=== PATIENT | female | born 1990 | race Hispanic/Latino ===

== ENCOUNTER → 2021-05-27 08:10 | Outpatient (CLI) | payer OTHER, SELFPAY ==
--- NOTE | 2021-05-27 | DI.MRI.S_ITS ---
PROCEDURE: MR TMJ WO CON INDICATIONS: Jaw pain TECHNIQUE: Axial T1 spin echo, coronal and sagittal PD fast spin echo through the temporomandibular joints, in both the closed- and open-mouth positions. COMPARISON: None. FINDINGS: Image quality: Excellent. Right: Joint is normally aligned on closed and open-mouth positioning. Articular disk demonstrates normal location and morphology. No bony erosions or osteophytes. Left: Joint is normally aligned on closed and open-mouth positioning. Articular disk demonstrates normal location and morphology. No bony erosions or osteophytes. IMPRESSION: No significant abnormality can be seen. Dictated by: Remi Ramon M.D. on 05/27/2021 at 9:02 Approved by: Remi Ramon M.D. on 05/27/2021 at 9:04
== END ==
PROVIDERS: PCP Physician Assistant; Referring Provider Dentist Oral and Maxillofacial Surgery; Visit Provider Dentist Oral and Maxillofacial Surgery
DX: R68.84 Jaw pain (principal)
CPT/HCPCS: 70336

== ENCOUNTER 2021-10-29 09:20 | Outpatient (CLI) | payer OTHER, SELFPAY | END 2021-11-02 13:24 | disposition home or self-care (01) | LOC: PHYS 09:21 | PROVIDERS: Family Provider Physician Assistant; PCP Physician Assistant; Referring Provider Physician Assistant; Visit Provider Physician Assistant | DX: M25.532 Pain in left wrist (principal) | CPT/HCPCS: 95886; 95912 ==

== ENCOUNTER → 2021-12-01 10:19 | Outpatient (CLI) | payer OTHER, SELFPAY ==
--- NOTE | 2021-12-01 | DI.MRI.S_ITS ---
PROCEDURE: MR WRIST RT W CON INDICATIONS: PAIN IN RIGHT WRIST TECHNIQUE: After the administration of 3-4 mL of dilute intra-articular Gadolinium contrast into the radiocarpal compartment, coronal T1 spin echo with fat saturation and T2 fast spin echo with fat saturation, axial T1 spin echo and T2 fast spin echo with fat saturation, sagittal T1 spin echo with and without fat saturation through the wrist. COMPARISON: [facility], , [place] WRIST INJECTION MR/CT RT, 12/01/2021, 10:35. FINDINGS: Image quality: Excellent. Bones and cartilage: The carpal bones are normally aligned. No bone marrow contusions or fractures. No evidence for avascular necrosis. Overlying cartilage surfaces appear normal. Carpal ligaments: The scapholunate and lunotriquetral ligaments appear intact, without gadolinium extravasation into the mid-carpal compartment. On sagittal images, the pisohamate ligament appears intact. Triangular fibrocartilage complex: The triangular fibrocartilage disc, with its styloid and foveal lamina, appears intact. No gadolinium extravasation into the distal radioulnar joint. Tendons and soft tissues: The carpal tunnel structures appear normal, including the median nerve. The ulnar nerve appears normal within Guyon's canal. T1-hyperintense fluid within the second and 3rd extensor compartments is most likely due to extravasation during the arthrogram injection. The remaining extensor tendon compartments demonstrate normal morphology, without pathologic tendon sheath fluid. A lobular communicating ganglion cyst at the volar radial aspect of the wrist measures up to 1.4 x 1.1 x 1.3 cm. The cyst is located just deep to the radial artery. IMPRESSION: 1. Lobular communicating ganglion cyst at the volar radial aspect of the wrist measures up to 1.4 cm maximum dimension, located just deep to the radial artery. 2. No acute trabecular bone injury. No significant ligament or tendon injury is seen. Dictated by: Eliot Lopez M.D. on 12/01/2021 at 16:06 Approved by: Eliot Lopez M.D. on 12/01/2021 at 16:11
--- NOTE | 2021-12-01 | DI.RAD.S_ITS ---
PROCEDURE: [place] WRIST INJECTION MR/CT RT INDICATIONS: PAIN IN RIGHT WRIST COMPARISON: [facility], MR, MR WRIST RT W CON, 12/01/2021, 10:50. TECHNIQUE: After informed consent had been obtained, the wrist was examined fluoroscopically, and a site chosen for injection of the radiocarpal compartment from a dorsal approach. Skin was prepped and draped in a sterile fashion and 1% lidocaine infiltrated from the skin down to the articular surface. A hypodermic needle was then introduced into the articular space and a modest amount of contrast medium was instilled confirming intra-articular needle tip placement. This was followed by approximately 4 mL of a dilute gadolinium solution. Needle was removed and dressing was applied. The patient experienced no complications throughout the procedure and left the fluoroscopic suite in no apparent distress. FINDINGS: A single fluoroscopic spot image demonstrates intra-articular location to injected iodinated contrast. IMPRESSION: Successful fluoroscopic-guided administration of dilute Gadolinium solution for wrist MR arthrogram. Dictated by: Millie San M.D. on 12/01/2021 at 12:53 Approved by: Millie San M.D. on 12/01/2021 at 12:54
== END ==
PROVIDERS: Family Provider Physician Assistant; PCP Physician Assistant; Referring Provider Physician Assistant; Visit Provider Physician Assistant
DX: M25.531 Pain in right wrist (principal); M67.431 Ganglion, right wrist
CPT/HCPCS: 20605; 73222; 77002

== ENCOUNTER → 2021-12-02 08:09 | Outpatient (CLI) | payer OTHER, SELFPAY ==
--- NOTE | 2021-12-02 | DI.RAD.S_ITS ---
PROCEDURE: [place] WRIST INJECTION MR/CT LT INDICATIONS: PAIN IN LEFT WRIST COMPARISON: None. TECHNIQUE: After informed consent had been obtained, the wrist was examined fluoroscopically, and a site chosen for injection of the radiocarpal compartment from a dorsal approach. Skin was prepped and draped in a sterile fashion and 1% lidocaine infiltrated from the skin down to the articular surface. A hypodermic needle was then introduced into the articular space and a modest amount of contrast medium was instilled confirming intra-articular needle tip placement. This was followed by approximately 4 mL of a dilute gadolinium solution. Needle was removed and dressing was applied. The patient experienced no complications throughout the procedure and left the fluoroscopic suite in no apparent distress. FINDINGS: A single fluoroscopic spot image demonstrates intra-articular location to injected iodinated contrast. IMPRESSION: Successful fluoroscopic-guided administration of dilute Gadolinium solution for wrist MR arthrogram. Dictated by: Abel Corrales M.D. on 12/02/2021 at 15:13 Approved by: Abel Corrales M.D. on 12/02/2021 at 15:14
--- NOTE | 2021-12-02 | DI.MRI.S_ITS ---
PROCEDURE: MR WRIST LT W CON INDICATIONS: PAIN IN LEFT WRIST TECHNIQUE: After the administration of 3-4 mL of dilute intra-articular Gadolinium contrast into the radiocarpal compartment, coronal T1 spin echo with fat saturation and T2 fast spin echo with fat saturation, axial T1 spin echo and T2 fast spin echo with fat saturation, sagittal T1 spin echo with and without fat saturation through the wrist. COMPARISON: [facility], [place], [place] WRIST INJECTION MR/CT LT, 12/02/2021, 8:34. [facility], MR, MR WRIST RT W CON, 12/01/2021, 10:50. FINDINGS: Image quality: Excellent. Bones and cartilage: Edema and subchondral cystic changes are seen within the lunate and the adjacent distal volar aspect of the radius. Cartilage loss is seen at the proximal ulnar aspect of the lunate. There is neutral ulnar variance. No evidence for avascular necrosis. Carpal ligaments: The scapholunate and lunotriquetral ligaments appear intact, without gadolinium extravasation into the mid-carpal compartment. On sagittal images, the pisohamate ligament appears intact. Triangular fibrocartilage complex: There is a small full-thickness defect within the central triangular fibrocartilage disc. Radiocarpal contrast material is seen extravasating into the distal radial ulnar joint. The dorsal and volar radioulnar ligaments appear to remain intact. Tendons and soft tissues: The carpal tunnel structures appear normal, including the median nerve. The ulnar nerve appears normal within Guyon's canal. T1-hyperintense contrast material is seen within the 2nd and 3rd extensor compartments, consistent with extravasation during the arthrogram injection. There is moderate extensor carpi ulnaris tendinosis. The remaining extensor tendon compartments demonstrate normal morphology, without pathologic tendon sheath fluid. A small communicating ganglion cyst at the volar radial aspect of the radiocarpal joint measures approximately the 4 x 2 x 3 mm. IMPRESSION: 1. Small full-thickness defect within the central triangular fibrocartilage disc with extravasation of radiocarpal contrast material into the distal radioulnar joint. 2. Focal full-thickness cartilage loss is seen at the proximal ulnar aspect of the lunate with subchondral cystic changes and edema. There is neutral ulnar variance as positioned on this exam. Findings may be the sequela of a remote prior injury versus chronic repetitive impaction injury or ulnar abutment syndrome. Mild subchondral cystic changes are also seen in the distal ulnar aspect of the radius. 3. Moderate extensor carpi ulnaris tendinosis. 4. Tiny 4 mm communicating ganglion cyst at the volar radial aspect of the radiocarpal joint. Dictated by: Eliot Lopez M.D. on 12/02/2021 at 11:31 Approved by: Eliot Lopez M.D. on 12/02/2021 at 11:44
== END ==
PROVIDERS: Family Provider Physician Assistant; PCP Physician Assistant; Referring Provider Physician Assistant; Visit Provider Physician Assistant
DX: M25.532 Pain in left wrist (principal)
CPT/HCPCS: 20605; 73222; 76000

== ENCOUNTER → 2021-12-04 09:23 | Outpatient (CLI) | payer OTHER, SELFPAY ==
--- NOTE | 2021-12-04 | DI.MRI.S_ITS ---
PROCEDURE: MR WRIST RT WO/W CON INDICATIONS: VOLAR MASS TECHNIQUE: Noncontrast coronal proton density fast spin echo and T2 fast spin echo with fat saturation; coronal 3-D gradient echo, axial T1 spin echo and T2 fast spin echo with fat saturation, axial T1 spin echo with fat saturation, sagittal T1 spin echo through the wrist. Post-contrast axial, coronal, and sagittal T1 spin echo with fat saturation through the wrist. COMPARISON: [facility], MR, MR WRIST RT W CON, 12/01/2021, 10:50. FINDINGS: Image quality: Excellent. Bones and cartilage: No suspicious osseous enhancement. The carpal bones are normally aligned. No bone marrow contusions or fractures. No evidence for avascular necrosis. Carpal ligaments: The scapholunate and lunotriquetral ligaments appear intact. On sagittal images, the pisohamate ligament appears intact. Triangular fibrocartilage complex: The triangular fibrocartilage appears intact. Tendons and soft tissues: No suspicious soft tissue enhancement. The carpal tunnel structures appear normal, including the median nerve. The ulnar nerve appears normal within Guyon's canal. Mild extensor carpi ulnaris tendinosis. The remaining extensor tendon compartments demonstrate normal morphology, without pathologic tendon sheath fluid. Mild nonspecific subcutaneous soft tissue edema at the dorsum of the wrist. Lobular ganglion cyst at the volar radial aspect of the wrist adjacent to the radiocarpal joint is again seen measuring approximately 14 x 12 x 8 mm with a thin lobular intra-articular component. There is a thin peripheral rim of enhancement without suspicious solid enhancing component. The lesion is again located deep to the radial artery, and is located adjacent to the skin marker. IMPRESSION: Ganglion cyst at the volar radial aspect of the wrist adjacent to the radiocarpal joint again measures up to 1.4 cm in size and demonstrates a thin peripheral rim of enhancement. No solid enhancing soft tissue mass surrounding the wrist. The cyst is again noted to be located adjacent to the radial artery. Dictated by: Eliot Lopez M.D. on 12/04/2021 at 12:44 Approved by: Eliot Lopez M.D. on 12/04/2021 at 12:50
== END ==
PROVIDERS: Family Provider Physician Assistant; PCP Physician Assistant; Referring Provider Orthopaedic Surgery; Visit Provider Orthopaedic Surgery
DX: M67.431 Ganglion, right wrist (principal); M25.831 Other specified joint disorders, right wrist; M25.531 Pain in right wrist; M25.532 Pain in left wrist
CPT/HCPCS: 73223; A9579